=== PATIENT | male | born 1960 | race Caucasian/White ===

== ENCOUNTER 2017-07-18 09:18 | Emergency (ER) | payer BC, OTHER ==
[2017-07-18 09:37] VITALS: RESP 18
[2017-07-18] MEDS ORDERED: PROPARACAINE 0.5% OPHTH DROPS 15 ML BTL BOTH EYES STA (09:57)
[2017-07-18] MEDS ORDERED: ERYTHROMYCIN 5 MG/GM OPHTH OINT 3.5 GM TUBE BOTH EYES STA (10:21)
--- NOTE | 2017-07-18 10:42 | ED ---
Eye Problem HPI - General Chief complaint: Eye Problems Stated complaint: eye injury/[facility]HS Time Seen by Provider: 07/18/17 09:56 Source: patient, RN notes reviewed, old records reviewed Mode of arrival: ambulatory Limitations: no limitations - History of Present Illness Initial comments: 49-year-old male presents emergency room chief complaint of right eye pain. 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 He reports the pain started around 740 this morning. He went to urgent care initially and was told that he had come to the emergency department for further evaluation. Denies any pain with flexion or ocular movements. Denies any significant change in vision. He does not wear contacts. Patient reports that his tetanus shot is up-to-date. He denies any fever or chills or any other associated symptoms.Patient denies any recent fever , chills, shortness of breath, chest pain, back pain, abdominal pain, nausea vomiting, numbness or tingling, dysuria or hematuria, constipation or diarrhea, headaches or visual changes, or any other current symptoms - Related Data Previous Rx's Medication Instructions Recorded Tobramycin 0.3% Ophth Soln [Tobrex 1 drop RIGHT EYE Q4H #1 bottle 07/18/17 0.3% Ophth Soln] Allergies Allergy/AdvReac Type Severity Reaction Status Date / Time No Known Allergies Allergy Verified 07/18/17 09:45 Review of Systems ROS Statement: Those systems with pertinent positive or pertinent negative responses have been documented in the HPI. ROS Other: All systems not noted in ROS Statement are negative. Past Medical History Additional Past Medical History / Comment(s): KIDNEY STONES History of Any Multi-Drug Resistant Organisms: None Reported Additional Past Surgical History / Comment(s): KIDNEY STONES REMOVED X2 Past Anesthesia/Blood Transfusion Reactions: No Reported Reaction Past Psychological History: No Psychological Hx Reported Smoking Status: Never smoker Past Alcohol Use History: None Reported Past Drug Use History: Unable to Obtain - Past Family History Mother Family Medical History: No Reported History General Exam - General Exam Comments Initial Comments: Well-appearing 49-year-old male. No acute distress. Limitations: no limitations General appearance: alert, in no apparent distress Head exam: Present: atraumatic, normocephalic, normal inspection Eye exam: Present: normal appearance, PERRL, EOMI, conjunctival injection ( Right eye conjunctival injection. Evidence of a foreign body at the 10 o'clock position.). Absent: scleral icterus, periorbital swelling ENT exam: Present: normal exam, mucous membranes moist Neck exam: Present: normal inspection. Absent: tenderness, meningismus, lymphadenopathy Respiratory exam: Present: normal lung sounds bilaterally. Absent: respiratory distress, wheezes, rales, rhonchi, stridor Cardiovascular Exam: Present: regular rate, normal rhythm, normal heart sounds. Absent: systolic murmur, diastolic murmur, rubs, gallop, clicks GI/Abdominal exam: Present: soft, normal bowel sounds. Absent: distended, tenderness, guarding, rebound, rigid Extremities exam: Present: normal inspection, full ROM, normal capillary refill. Absent: tenderness, pedal edema, joint swelling, calf tenderness Back exam: Present: normal inspection Neurological exam: Present: alert, oriented X3, CN II-XII intact Psychiatric exam: Present: normal affect, normal mood Skin exam: Present: warm, dry, intact, normal color. Absent: rash Course Vital Signs 07/18/17 09:33 Temperature 98.0 F Pulse Rate 74 Respiratory 18 Rate Blood Pressure 119/78 O2 Sat by Pulse 99 Oximetry Medical Decision Making - Medical Decision Making 57-year-old male present to emergency room chief complaint foreign body sensation within his right eye. He works in a metal shop. A fluorescein eye exam stating his note he has a small foreign body noted at the 10 o'clock position of the eye. Patient's eye was anesthetized with proparacaine. Using the Wood's lamp is able to remove the foreign body with the Chela brush. Restaurant was also removed. Patient was placed on a refill less than eye ointment drops for infection prevention. Discussed following up with ophthalmology if symptoms continue persist after one to 2 days. Patient agrees to treatment plan will comply. Return parameters were discussed. Disposition Clinical Impression: FB eye, Corneal abrasion, right Disposition: HOME SELF-CARE Condition: Good Instructions: Corneal Abrasion (ED) Additional Instructions: Patient was put the eye ointment in the eye every 4 hours. Follow-up with ophthalmology if symptoms continue persist after 12 days. Return to emergency department if any alarming signs or symptoms occur. Prescriptions: Tobramycin 0.3% Ophth Soln [Tobrex 0.3% Ophth Soln] 1 drop RIGHT EYE Q4H #1 bottle Referrals: Vladimir Anderson DO [Primary Care Provider] - 1-2 days Loyd Pop MD [STAFF PHYSICIAN] - 1-2 days Time of Disposition: 10:41
[2017-07-18 11:13] VITALS: BP 145/89; PULSE 61; TEMP 97.7
== END 2017-07-18 11:12 | disposition home or self-care (01) ==
LOC: EC 09:18
DX: T15.01XA Foreign body in cornea, right eye, initial encounter (principal); Y93.89 Activity, other specified; Y92.513 Shop (commercial) as the place of occurrence of the external cause
CPT/HCPCS: 65222; 99283

== ENCOUNTER → 2018-05-23 | Outpatient (CLI) | payer BC ==
--- NOTE | 2018-05-24 07:55 | MR ---
EXAMINATION TYPE: MR brain and iac wo con DATE OF EXAM: 05/23/2018 COMPARISON: None HISTORY: Dizzy, Headaches, Gadavist 10ml CONTRAST: Performed utilizing 0 mL intravenous Gadavist gadolinium contrast. IV access could not be obtained. TECHNIQUE: Multiplanar, multiecho imaging on a 3.0 Dimple magnet is performed through the brain. Atte ntion is paid to the internal auditory canals with thin section imaging. Postcontrast imaging is per formed through the internal auditory canals. FINDINGS:Craniovertebral junction is normal. The pituitary is normal. Diffusion-weighted imaging is performed. No suspicious hyperintensity is present to suggest an acute intracranial infarct or acute ischemic area. Signal within the brain normal signal. Optic chiasm is visualized in the coronal plane appears unrem arkable. Pituitary stalk appears midline. Normal vascular flow voids are present. Note is made of mucosal thickening throughout the bilateral maxillary sinuses. Left septal deviation is noted. Mucosal thickening is within ethmoid air cells. Sphenoid sinuses and frontal sinuses appear clear. Thin section imaging is performed through the internal auditory canals and cerebellar pontine angles. No cerebellar pontine angle masses are evident. The internal auditory canals appear normal without expansion or erosion. Postcontrast imaging was attempted. No contrast be administered. Evaluation for enhancement cannot be performed. Small intracanalicular acoustic schwannoma this may not be visualized. IMPRESSIONS: 1. Normal noncontrast internal auditory canals. 2. Visualized portions of the brain appear unremarkable.
== END | disposition home or self-care (01) ==
LOC: RADMRIMAIN 18:35
PROVIDERS: ATTEND Otolaryngology
DX: H93.3X9 Disorders of unspecified acoustic nerve (principal); R42 Dizziness and giddiness
CPT/HCPCS: 70551

== ENCOUNTER 2025-02-09 08:40 | Day surgery (SDC) | payer BC ==
[2025-02-03 14:40] VITALS: BMI 29.8
[~2025-02-09 08:40] MED LIST: LIDOCAINE 1% (10MG/ML) FOR IV START INTRADERMA PRN
[2025-02-09] MEDS: IV FLUID CONTINUATION 1,000 ML IV ONE (09:10)
[2025-02-09 09:20] VITALS: TEMP 97.3
[2025-02-09] MEDS: LACTATED RINGERS 1,000 ML IV SCH (09:20)
[2025-02-09] MEDS ORDERED: PROPOFOL 10 MG/ML 20 ML VIAL IV ONE (10:13)
[2025-02-09] MEDS ORDERED: LIDOCAINE 1% INJ 10MG/ML (20 ML MDV) ONE (10:13)
--- NOTE | 2025-02-09 10:29 | P.PCN ---
Date of Procedure: 02/09/25 Preoperative Diagnosis: Screening Postoperative Diagnosis: Internal hemorrhoids Procedure(s) Performed: Colonoscopy Anesthesia: MAC Surgeon: Genesis Mackay Pathology: none sent Condition: stable Disposition: same day Indications for Procedure: Patient presents for screening colonoscopy. He denies any blood in his stool. No family history of colon cancer. No personal history of colon polyps. Risks, benefits and alternatives the patient. All questions answered prior to attending the endoscopy suite. Operative Findings: Overall normal-appearing colon with mild internal hemorrhoid Description of Procedure: The patient was brought to the endoscopy suite and placed in left lateral decubitus position and adequate sedation was achieved using conscious sedation. Digital rectal exam was performed and mild internal hemorrhoids were palpated. An endoscope was then placed in the rectum and advanced to the cecum as identified by landmarks including the appendiceal orifice and the ileocecal valve. The prep was good. The colonoscope was then slowly withdrawn, examining for any mucosal abnormalities. The cecum, ascending, transverse, descending and sigmoid colon were visualized adequately. There were no large neoplastic lesions noted throughout the colon. No obvious polyps were noted. Hemostasis was maintained. No evidence of diverticulosis. Retroflexion was performed in the rectum and internal. Excess air was removed, the colonoscope withdrawn and the procedure terminated. The patient was then transferred to the recovery unit in stable condition. Repeat colonoscopy should be performed in 10 years.
[2025-02-09 10:55] VITALS: PULSE 58; RESP 16
[2025-02-09 11:19] VITALS: BP 108/50
== END 2025-02-09 11:28 | disposition home or self-care (01) ==
LOC: ORWHC2ENDO 08:40
PROVIDERS: ATTEND Surgery
DX: Z12.11 Encounter for screening for malignant neoplasm of colon (principal); K64.8 Other hemorrhoids
CPT/HCPCS: J2003; J2704; G0121